=== PATIENT | male | born 1995 | race Caucasian/White ===

== ENCOUNTER 2023-03-05 12:23 | Day surgery (SDC) | payer BC ==
[2023-02-25 12:18] VITALS: BMI 18.1
[2023-03-05] MEDS ORDERED: PROPOFOL 20 ML ONE (13:26)
[2023-03-05 14:16] VITALS: TEMP 97.2
[2023-03-05 14:17] VITALS: BP 104/67; PULSE 68; RESP 18
== END 2023-03-05 14:35 | disposition home or self-care (01) ==
LOC: FASU-ENDO 12:23
PROVIDERS: ATTEND Internal Medicine Gastroenterology
PROC: 0DJD8ZZ Inspection of Lower Intestinal Tract, Via Natural or Artificial Opening Endoscopic (ICD-10-PCS; principal; 2023-03-05 13:26)
DX: R19.7 Diarrhea, unspecified (principal); K64.0 First degree hemorrhoids